=== PATIENT | male | born 1980 | race Caucasian/White ===

== ENCOUNTER 2017-03-06 09:14 | Emergency (ER) | payer SELFPAY ==
[~2017-03-06] VITALS: Ht 182.9 cm; Wt 72.5 kg
[2017-03-06 09:22] VITALS: BP 129/68; PULSE 62; RESP 18; TEMP 97.9; O2SAT 98
--- NOTE | 2017-03-06 09:46 | PD ---
HPI Chief Complaint: Injury Time Seen by Provider: 09:27 Travel History International Travel<30 days: No Contact w/Intl Traveler<30days: No Traveled to known affect area: No History of Present Illness HPI 37-year-old right-hand dominant male presents to ED for evaluation after right hand injury. Patient states that while he was working yesterday attempting to attach something to the hitch of a truck his hand was smashed between the bumper of the truck and the piece of equipment. He denies any pain in that hand while at rest but states "it's up there" with palpation. Pain is centered over the 4th metacarpal. He denies numbness, tingling, weakness, limitations to range of motion of the extremity. He has never injured that hand before. He treated at home with immobilization and ice with no improvement of symptoms. [facility] Past Medical History Bipolar Disorder: Yes Past Surgical History Other Surgery: Yes (COMPRESSED DISC/CHEST TUBE) Social History Alcohol Use: Yes (4-5 BEERS DAILY) Tobacco Use: Yes (1/2-1 PPD) Substance Use: No ( ) Allergies-Medications (Allergen,Severity, Reaction): Coded Allergies: No Known Allergies (Unverified Adverse Reaction, Unknown, 03/06/17) Reported Meds & Prescriptions Reported Meds & Active Scripts Active No Active Prescriptions or Reported Medications Review of Systems Except as stated in HPI: all other systems reviewed are Neg Physical Exam Narrative GENERAL: Well-nourished, well-developed white male in no acute distress. SKIN: Focused skin assessment warm/dry. HEAD: Normocephalic. EYES: No scleral icterus. No injection or drainage. NECK: Supple, trachea midline. No JVD or lymphadenopathy. CARDIOVASCULAR: Regular rate and rhythm without murmurs, gallops, or rubs. RESPIRATORY: Breath sounds equal bilaterally. No accessory muscle use. GASTROINTESTINAL: Abdomen soft, non-tender, nondistended. MUSCULOSKELETAL: No cyanosis, or edema. FOCUSED RIGHT UPPER EXTREMITY EXAM: 2+ radial pulse. Tender to palpation over the shaft of the fourth metacarpal. No snuffbox tenderness. Patient retains strong flexion, extension, abduction and adduction of the fingers. Strong finger to thumb opposition on each digit. Sensation intact to light touch distally and cap refill less than 2 seconds on each digit. BACK: Nontender without obvious deformity. No CVA tenderness. Data Data Last Documented VS Vital Signs Date Time Temp Pulse Resp B/P (MAP) Pulse Ox O2 Delivery O2 Flow Rate FiO2 03/06/17 09:22 97.9 62 18 129/68 (88) 98 Orders Orders Hand, Complete ([id number]) (03/06/17 09:22) Ice/Cold Pack (03/06/17 09:22) MDM Medical Decision Making Medical Screen Exam Complete: Yes Emergency Medical Condition: Yes Differential Diagnosis Contusion versus crush injury versus fracture versus dislocation versus other Narrative Course 37-year-old right-hand dominant male presents to ED for evaluation after right hand injury. Patient states that while he was working yesterday attempting to attach something to the hitch of a truck his hand was smashed between the bumper of the truck and the piece of equipment. Vitals reviewed. On exam there is tenderness to palpation over the shaft of the fourth metacarpal, both palmar and dorsal aspects. Otherwise unremarkable. X-rays reveal no acute bony injury per radiology read. This is contusion of the hand. Patient's instructed to RICE, follow-up with primary care provider or hand surgeon should symptoms fail to resolve. He indicated understanding of instructions and is agreeable a care plan. The patient is stable and discharged home. Diagnosis Primary Impression: Contusion of hand, right Qualified Codes: S60.221A - Contusion of right hand, initial encounter Referrals: Primary Care Physician Patient Instructions: Contusion in Adults (ED), General Instructions Additional Instructions: Rest, ice, elevate the extremity. Apply ice no longer than 10-15 minutes per hour a few times a day. 800 mg ibuprofen up to 3 times a day as needed for pain. Return to normal, gentle activity as tolerated. No heavy lifting or overuse 1 week Follow up with your primary care provider or the hand surgeon if symptoms do not resolve. Return to the ED for any urgent or emergent medical condition. Scripts No Active Prescriptions or Reported Meds Disposition: 01 DISCHARGE HOME Condition: Stable Kim Barger Mar 06, 2017 09:46
--- NOTE | 2017-03-06 09:53 | RADRPT ---
EXAM DATE/TIME: 03/06/2017 09:32 [facility] COMPARISON: No previous studies available for comparison. INDICATIONS : Pain after jamming hand at work yesterday. MEDICAL HISTORY : None. SURGICAL HISTORY : None. ENCOUNTER: Initial ACUITY: 1 day PAIN SCORE: 2/10 LOCATION: Right hand FINDINGS: Three view examination of the right hand demonstrates no acute fracture or malalignment. There is mil d soft tissue prominence over the dorsum of the metacarpals.. The carpal bones appear intact. The interphalangeal and metacarpophalangeal joints are intact. Bony mineralization is normal. CONCLUSION: Mild soft tissue prominence with no acute fracture or malalignment. Dionicio Sotelo MD on March 06, 2017 at 9:49 Board Certified Radiologist. This report was verified electronically.
== END 2017-03-06 10:16 | disposition home or self-care (01) ==
LOC: NEPK 09:14
DX: S60.221A Contusion of right hand, initial encounter (principal); F17.200 Nicotine dependence, unspecified, uncomplicated; W23.0XXA Caught, crushed, jammed, or pinched between moving objects, initial encounter; Y93.89 Activity, other specified
CPT/HCPCS: 73130; 99283